=== PATIENT | female | born 1985 | race African-American/Black ===

== ENCOUNTER 2022-10-10 04:33 | Emergency (ER) | payer OTHER ==
[~2022-10-10] VITALS: Ht 170.2 cm; Wt 68.0 kg
[2022-10-10 04:45] VITALS: BP 130/66; TEMP 98.5
[2022-10-10] MEDS ORDERED: AMOX-430 PO ×2 (04:51→04:57)
[2022-10-10 04:59] VITALS: O2SAT 100
== END 2022-10-10 05:04 | disposition home or self-care (01) ==
LOC: ER 04:35
DX: T16.1XXA Foreign body in right ear, initial encounter (principal)